=== PATIENT | female | born 2005 | race Two or more races ===

== ENCOUNTER → 2024-12-06 | Outpatient (CLI) | payer OTHER ==
[2024-12-06 16:11] LABS: TOTAL PROTEIN,RANDOM URINE 18.8 MG/DL (0.0-14.0)
[2024-12-06 16:16] LABS: CREATININE,RANDOM URINE 167.4 MG/DL
[2024-12-06 16:56] LABS: Trichomonas vaginalis (AMP) NOT DETECTED (NEGATIVE)
[2024-12-06 18:09] LABS: HEMATOCRIT 26.7 % (36.0-47.0); MEAN CORPUSCULAR HEMOGLOBIN 19.6 pg (27.0-33.0); MEAN CORPUSCULAR VOLUME 65.4 fl (80.0-96.0); PLATELET COUNT, AUTOMATED 262 10^3/uL (150-450); RED BLOOD COUNT 4.08 10^6/uL (4.00-5.40); URIC ACID 2.6 MG/DL (3.1-7.8); WHITE BLOOD COUNT 8.2 10^3/uL (4.0-10.0)
[2024-12-06 18:11] LABS: LDH LACTATE DEHYDROGENASE 147 U/L (120-246)
[2024-12-06 18:12] LABS: ALT/SGPT < 9 U/L (7.0-40); AST/SGOT 12 U/L (<34); BILIRUBIN,TOTAL 0.4 MG/DL (0.3-1.2); CREATININE FOR GFR 0.48 MG/DL (0.55-1.30); GLOMERULAR FILTRATION RATE > 90.0 (>60); GLUCOSE CHALLENGE TEST 1 HOUR 114 MG/DL (LESS THAN 140)
[2024-12-06 18:38] LABS: HIV 1&2 SCREEN NEGATIVE (NEGATIVE)
[2024-12-06 18:47] LABS: HEPATITIS C VIRUS ABY INDEX 0.15 INDEX (<0.8)
== END ==
LOC: M PLALAB 14:36
PROVIDERS: ATTEND Obstetrics & Gynecology
DX: Z34.82 Encounter for supervision of other normal pregnancy, second trimester (principal)

== ENCOUNTER → 2024-12-06 | Outpatient (CLI) | payer OTHER | LOC: M WHC 16:45 | PROVIDERS: ATTEND Obstetrics & Gynecology | DX: Z53.9 Procedure and treatment not carried out, unspecified reason (principal) ==

== ENCOUNTER → 2024-12-16 | Outpatient (REF) | payer OTHER ==
[2024-12-16 15:13] LABS: GC DNA AMPLIFICATION NEGATIVE (NEGATIVE)
[2024-12-16 20:23] LABS: Trichomonas vaginalis (AMP) NOT DETECTED (NEGATIVE)
== END ==
LOC: M SFHCWAGY 12:47
PROVIDERS: ATTEND Obstetrics & Gynecology
DX: Z3A.27 27 weeks gestation of pregnancy (principal)

== ENCOUNTER → 2025-02-17 | Outpatient (REF) | payer OTHER ==
[~2025-02-17] MED LIST: ECOT81TA5 PO
[2025-02-17 13:59] LABS: TOTAL PROTEIN,RANDOM URINE 16.7 MG/DL (0.0-14.0)
[2025-02-17 14:53] LABS: Trichomonas vaginalis (AMP) NOT DETECTED (NEGATIVE)
[2025-02-17 15:17] LABS: GC DNA AMPLIFICATION NEGATIVE (NEGATIVE)
== END ==
LOC: M SFHCWAGY 12:37
PROVIDERS: ATTEND Obstetrics & Gynecology
DX: O09.33 Supervision of pregnancy with insufficient antenatal care, third trimester (principal); Z87.59 Personal history of other complications of pregnancy, childbirth and the puerperium

== ENCOUNTER 2025-02-23 15:11 | Emergency (ER) | payer OTHER ==
[~2025-02-23] VITALS: Ht 167.6 cm; Wt 58.6 kg
[2025-02-23 15:17] VITALS: TEMP 98.5; O2SAT 97
[2025-02-23 15:25] VITALS: BP 120/80
[2025-02-23] MEDS ORDERED: ECOT81TA5 PO (15:27)
== END 2025-02-23 16:24 | disposition admitted as inpatient to this hospital (09) ==
LOC: EDBD 15:11 → M ED 15:11
DX: Z53.21 Procedure and treatment not carried out due to patient leaving prior to being seen by health care provider (principal)

== ENCOUNTER 2025-02-23 16:29 | Outpatient (CLI) | payer OTHER ==
[~2025-02-23] VITALS: Ht 167.6 cm; Wt 58.8 kg
[2025-02-23 16:57] VITALS: BP 109/61; TEMP 98.4
[2025-02-23 18:01] LABS: PLATELET COUNT, AUTOMATED 182 10^3/uL (150-450)
[2025-02-23 18:01] LABS: TOTAL PROTEIN,RANDOM URINE 21.5 MG/DL (0.0-14.0)
[2025-02-23 18:20] LABS: LDH LACTATE DEHYDROGENASE 143 U/L (120-246)
[2025-02-23 18:21] LABS: ALT/SGPT < 9 U/L (7.0-40); AST/SGOT 14 U/L (<34); CREATININE FOR GFR 0.56 MG/DL (0.55-1.30); GLOMERULAR FILTRATION RATE > 90.0 (>60)
== END 2025-02-23 18:27 | disposition home or self-care (01) ==
LOC: M LDO 16:29
PROVIDERS: ATTEND Specialist
DX: O99.013 Anemia complicating pregnancy, third trimester (principal); O09.33 Supervision of pregnancy with insufficient antenatal care, third trimester; O15.03 Eclampsia complicating pregnancy, third trimester; R56.9 Unspecified convulsions; D50.9 Iron deficiency anemia, unspecified; Z3A.37 37 weeks gestation of pregnancy
CPT/HCPCS: 36415; 59025; 82247; 82570; 83615; 84156; 84450; 84460; 84550; 85027; G0463

== ENCOUNTER 2025-02-25 00:14 | Outpatient (CLI) | payer OTHER ==
[~2025-02-25] VITALS: Ht 167.6 cm; Wt 59.9 kg
[2025-02-25 00:38] VITALS: BP 102/59
[2025-02-25 02:06] VITALS: BP 120/76
== END 2025-02-25 03:30 | disposition home or self-care (01) ==
LOC: M LDO 00:14
PROVIDERS: ATTEND Advanced Practice Midwife
DX: O34.211 Maternal care for low transverse scar from previous cesarean delivery (principal); O26.23 Pregnancy care for patient with recurrent pregnancy loss, third trimester; O99.013 Anemia complicating pregnancy, third trimester; O99.343 Other mental disorders complicating pregnancy, third trimester; O99.820 Streptococcus B carrier state complicating pregnancy; D50.9 Iron deficiency anemia, unspecified; F41.9 Anxiety disorder, unspecified; Z86.19 Personal history of other infectious and parasitic diseases; Z87.59 Personal history of other complications of pregnancy, childbirth and the puerperium; Z3A.37 37 weeks gestation of pregnancy
CPT/HCPCS: 59025; G0463

== ENCOUNTER 2025-03-11 07:09 | Emergency (ER) | payer OTHER | END 2025-03-11 07:10 | disposition admitted as inpatient to this hospital (09) | LOC: M ED 07:09 | DX: Z53.21 Procedure and treatment not carried out due to patient leaving prior to being seen by health care provider (principal) ==

== ENCOUNTER 2025-03-11 07:14 | Inpatient (IN) | payer OTHER ==
[~2025-03-11] VITALS: Ht 167.6 cm; Wt 59.4 kg
[2025-03-11] VITALS (35 sets, daily range): BP systolic 83–143; BP diastolic 39–77; O2SAT 97
[2025-03-11] MEDS ORDERED: OXYTOCIN DRIP 30 UNITS in IV 1 EA IV PRN (07:50)
[2025-03-11] MEDS ORDERED: LIDOCAINE 1% MDV 20 ML VIAL INFIL PRN (07:50)
[2025-03-11 08:31] LABS: PLATELET COUNT, AUTOMATED 186 10^3/uL (150-450)
[2025-03-11] MEDS: LR 1,000 ML IV ONE (08:35)
[2025-03-11] MEDS: PENICILLIN G POTASSIUM 5 MU IV 5 MU in DEXTROSE 5% (D5W) MINI-BAG PLU 100 ML IV STA (08:57)
[2025-03-11] MEDS ORDERED: **PENDING PCN ENTRY XX SCH (09:00)
[2025-03-11] MEDS: PRENATAL VITAMINS CHEWABLE TABLET PO SCH (09:00)
[2025-03-11] MEDS ORDERED: diphenhydrAMINE 50 MG/ML VIAL IV PRN (09:25)
[2025-03-11] MEDS ORDERED: NALOXONE INJ 0.4 MG/1 ML VIAL IV PRN (09:25)
[2025-03-11] MEDS ORDERED: EPIDURAL/PCA KEYS XX PRN (09:25)
[2025-03-11 09:34] LABS: HEPATITIS C VIRUS ABY INDEX < 0.02 INDEX (<0.8)
[2025-03-11] MEDS: FENTANYL/ROPIVACAINE/NACL BAG 100 ML EPIDURAL SCH (09:57)
[2025-03-11] MEDS: LR 500 ML IV PRN (09:59)
[2025-03-11] MEDS ORDERED: PEN G POT 3,000,000 UNIT/50 ML 3,000,000 UNIT in IV 1 EA IV SCH (11:50)
[2025-03-11] MEDS: LR 1,000 ML IV SCH (13:20)
[2025-03-11] MEDS: ONDANSETRON 4MG 2ML VIAL IV PRN (13:24)
[2025-03-11] MEDS: OXYTOCIN DRIP 30 UNITS in IV 1 EA IV SCH (13:33)
[2025-03-11] MEDS: PEN G POT 3,000,000 UNIT/50 ML 3,000,000 UNIT in IV 1 EA IV SCH (13:38)
[2025-03-11 15:11] LABS: CORD GAS ABE A -6.9; CORD GAS HCO3 A 18.1 MMOL/L; CORD GAS O2 SAT A 81.7 %; CORD GAS PCO2 A 35.2 mmHg; CORD GAS PH A 7.33 UNITS; CORD GAS PO2 A 36.7 mmHg; CORD GAS SBC A 18.6 MMOL/L; CORD GAS TCO2 A 19.2 MMOL/L
[2025-03-11 15:13] LABS: CORD GAS ABE V -3.4; CORD GAS HCO3 V 21.8 MMOL/L; CORD GAS O2 SAT V 81.8 %; CORD GAS PCO2 V 39.9 mmHg; CORD GAS PH V 7.355 UNITS; CORD GAS PO2 V 36.0 mmHg; CORD GAS SBC V 21.3 MMOL/L; CORD GAS TCO2 V 23.0 MMOL/L
[2025-03-11] MEDS ORDERED: ACETAMINOPHEN 325 MG TAB PO PRN (15:30)
[2025-03-11] MEDS ORDERED: METHYLERGONOVINE MALEATE 0.2 MG TAB PO PRN (15:30)
[2025-03-11] MEDS ORDERED: ACETAMINOPHEN 500 MG TAB PO PRN (15:30)
[2025-03-11] MEDS ORDERED: RHOGAM 300MCG (1500IU) INJ IM SCH (15:30)
[2025-03-11] MEDS: IBUPROFEN 800 MG TAB PO PRN (15:59)
[2025-03-12 06:09] VITALS: BP 114/56; O2SAT 98
[2025-03-12 18:00] VITALS: BP 101/58; O2SAT 97
[2025-03-13 06:00] VITALS: BP 120/63; O2SAT 100
[2025-03-13] MEDS: DOCUSATE SODIUM 100 MG CAPSULE PO PRN (09:34)
[2025-03-13] MEDS: IBUPROFEN 600 MG TAB PO PRN (09:35)
[2025-03-13] MEDS: DIBUCAINE 1% OINTMENT 30 GM TOP PRN (09:35)
[2025-03-13] MEDS: MEASLES,MUMPS,RUBELLA VACCINE INJ (MMR-II) SC.IMMUN ONE (13:25)
== END 2025-03-13 13:55 | disposition home or self-care (01) | DRG 807 ==
LOC: M LDO 07:14 → M LDI 07:46 → M OBS 17:45
PROVIDERS: ADMIT Specialist; ATTEND Specialist
PROC: 10E0XZZ Delivery of Products of Conception, External Approach (ICD-10-PCS; principal; 2025-03-11)
PROC: 0HQ9XZZ Repair Perineum Skin, External Approach (ICD-10-PCS; 2025-03-11)
PROC: 10907ZC Drainage of Amniotic Fluid, Therapeutic from Products of Conception, Via Natural or Artificial Opening (ICD-10-PCS; 2025-03-11)
DX: O34.211 Maternal care for low transverse scar from previous cesarean delivery (principal); Z37.0 Single live birth; Z3A.39 39 weeks gestation of pregnancy; O99.824 Streptococcus B carrier state complicating childbirth; O77.0 Labor and delivery complicated by meconium in amniotic fluid; O69.81X0 Labor and delivery complicated by cord around neck, without compression, not applicable or unspecified; O70.0 First degree perineal laceration during delivery